=== PATIENT | female | born 1995 | race Two or more races ===

== ENCOUNTER 2023-03-03 16:09 | Outpatient (CLI) | payer OTHER | END 2023-03-03 16:10 | disposition home or self-care (01) | LOC: PRENATAL 16:09 | PROVIDERS: ATTEND Obstetrics & Gynecology Maternal & Fetal Medicine | DX: O26.849 Uterine size-date discrepancy, unspecified trimester (principal); O34.219 Maternal care for unspecified type scar from previous cesarean delivery; Z3A.26 26 weeks gestation of pregnancy ==

== ENCOUNTER → 2023-03-25 16:16 | Outpatient (CLI) | payer OTHER | END | disposition home or self-care (01) | LOC: PRENATAL 16:16 | PROVIDERS: ATTEND Obstetrics & Gynecology Maternal & Fetal Medicine | DX: O26.849 Uterine size-date discrepancy, unspecified trimester (principal); O34.219 Maternal care for unspecified type scar from previous cesarean delivery; O36.5990 Maternal care for other known or suspected poor fetal growth, unspecified trimester, not applicable or unspecified; Z3A.29 29 weeks gestation of pregnancy ==

== ENCOUNTER 2023-05-08 01:13 | Outpatient (CLI) | payer OTHER ==
[2023-05-08] MEDS ORDERED: TERBUTALINE SULFATE 1 MG/ML AMPUL SUBCUTANEO SCH (01:30)
[2023-05-08] MEDS ORDERED: RINGERS SOLUTION,LACTATED 1,000 ML IV SCH (01:30)
[2023-05-08 02:47] LABS: PH,URINE 6.5 (5.0-8.0); URINE APPEARANCE Cloudy; URINE BILIRRUBIN Negative (NEGATIVE); URINE BLOOD Negative; URINE COLOR Yellow; URINE GLUCOSE Negative (NEGATIVE); URINE LEUKOCYTE Moderate; URINE NITRATE Negative; URINE PROTEIN 30 (NEGATIVE)
[2023-05-08 02:51] LABS: URINE BACTERIA 6526.6 uL (0.0-1933); URINE EPITHELIAL CELLS 136.6 uL (0.0-38.8)
[2023-05-08 02:52] LABS: HEMATOCRIT 28.5 % (36.0-45.00); HEMOGLOBIN 9.5 g/dL (12.0-15.00); MEAN CELL VOLUME 88.6 fL (80.00-100.00); MEAN CORPUSCULAR HEMOGLOBIN 29.6 pg (27.00-32.0); MEAN CORPUSCULAR HGB CONC 33.4 g/dl (32.0-36.0); PLATELET COUNT 280 K/uL (150-450); RED BLOOD COUNT 3.22 M/uL (4.00-6.00); RED CELL DISTRIBUTION WIDTH 14.6 % (11.5-14.5)
[2023-05-08 03:09] LABS: URINE RBC 0.8 uL (0.0-20.8)
[2023-05-08 03:10] LABS: URINE CRYSTALS FEW /HPF
== END 2023-05-08 14:51 | disposition home or self-care (01) ==
LOC: OBS/DEL 01:13
PROVIDERS: Obstetrics & Gynecology; ATTEND Obstetrics & Gynecology
DX: O26.893 Other specified pregnancy related conditions, third trimester (principal); O26.849 Uterine size-date discrepancy, unspecified trimester; O36.8199 Decreased fetal movements, unspecified trimester, other fetus; O34.219 Maternal care for unspecified type scar from previous cesarean delivery; O36.5990 Maternal care for other known or suspected poor fetal growth, unspecified trimester, not applicable or unspecified; O60.00 Preterm labor without delivery, unspecified trimester; Z3A.32 32 weeks gestation of pregnancy

== ENCOUNTER 2023-05-26 20:19 | Inpatient (IN) | payer OTHER ==
[~2023-05-26] VITALS: Ht 149.9 cm; Wt 68.0 kg
[2023-05-26] MEDS ORDERED: PRENATAL TABLE1 EAC5 PO (21:02)
[2023-05-26] MEDS ORDERED: FOLIC ACID20 MG PO (21:03)
[2023-05-26 21:44] LABS: URINE APPEARANCE Cloudy; URINE BILIRRUBIN Negative (NEGATIVE); URINE BLOOD Negative; URINE COLOR Yellow; URINE GLUCOSE Negative (NEGATIVE); URINE LEUKOCYTE Small; URINE NITRATE Negative; URINE PROTEIN Trace (NEGATIVE)
[2023-05-26 21:45] LABS: HEMATOCRIT 34.8 % (36.0-45.00); HEMOGLOBIN 11.5 g/dL (12.0-15.00); MEAN CELL VOLUME 87.8 fL (80.00-100.00); MEAN CORPUSCULAR HEMOGLOBIN 29.1 pg (27.00-32.0); MEAN CORPUSCULAR HGB CONC 33.1 g/dl (32.0-36.0); PLATELET COUNT 296 K/uL (150-450); RED BLOOD COUNT 3.96 M/uL (4.00-6.00); RED CELL DISTRIBUTION WIDTH 15.6 % (11.5-14.5)
[2023-05-26] MEDS ORDERED: OXYTOCIN 10 UNITS/ML VIAL ONE (22:04)
[2023-05-26] MEDS ORDERED: ERYTHROMYCIN BASE 3.5 GM OINT...G. OP ONE (22:04)
[2023-05-26 22:05] LABS: INR < 0.93; PARTIAL THROMBOPLASTIN TIME 25.9 SECONDS (22.0-34.0); PROTHROMBIN TIME 9.6 SECONDS (9.0-11.5)
[2023-05-26] MEDS ORDERED: CEFAZOLIN SODIUM 1,000 MG VIAL ONE (22:05)
[2023-05-26 22:24] LABS: URINE BACTERIA 3294.7 uL (0.0-1933); URINE EPITHELIAL CELLS 76.9 uL (0.0-38.8); URINE RBC 3.3 uL (0.0-20.8); URINE WBC 109.6 uL (0.0-23.2)
[2023-05-26] MEDS ORDERED: CEFOXITIN SODIUM 2,000 MG VIAL IV ONE (22:30)
[2023-05-26] MEDS ORDERED: RINGERS SOLUTION,LACTATED 1,000 ML IV SCH (23:45)
[2023-05-26] MEDS ORDERED: MEPERIDINE HCL/PF 50 MG/ML VIAL IM PRN (23:45)
[2023-05-26] MEDS ORDERED: PROMETHAZINE HCL 25 MG/ML AMPUL IM PRN (23:45)
[2023-05-26] MEDS ORDERED: OXYTOCIN 1,000 ML IV SCH (23:45)
[2023-05-27 01:48] LABS: ABG PH 7.311 (7.35-7.45); ABG PO2 42.3 mmHg (80-100); ABG pCO2 44.5 mmHg (35-45); SaO2 71.8 %
[2023-05-27 01:49] LABS: BASE EXCESS -4.3 mmol/l; Tco2 23.3 mmol/l; o2 21 %
[2023-05-27] MEDS ORDERED: OXYTOCIN 10 UNITS/ML VIAL ONE (05:11)
[2023-05-27 08:07] LABS: HEMATOCRIT 28.6 % (36.0-45.00); MEAN CORPUSCULAR HEMOGLOBIN 28.6 pg (27.00-32.0); MEAN CORPUSCULAR HGB CONC 33.3 g/dl (32.0-36.0); PLATELET COUNT 242 K/uL (150-450); RED BLOOD COUNT 3.32 M/uL (4.00-6.00); RED CELL DISTRIBUTION WIDTH 15.5 % (11.5-14.5)
[2023-05-27 08:09] LABS: HEMOGLOBIN 9.5 g/dL (12.0-15.00)
[2023-05-27] MEDS ORDERED: OxyCODONE HCL/APAP UD (PERCOCET) PO PRN (09:00)
== END 2023-05-29 16:07 | disposition home or self-care (01) | DRG 788 ==
LOC: OB/GYN 20:19 → LDR 20:19 → O/R 22:45 → OB/GYN 23:50
PROVIDERS: ADMIT Obstetrics & Gynecology; ATTEND Obstetrics & Gynecology
PROC: 4A1HXCZ Monitoring of Products of Conception, Cardiac Rate, External Approach (ICD-10-PCS; 2023-05-26)
PROC: 10D00Z1 Extraction of Products of Conception, Low, Open Approach (ICD-10-PCS; principal; 2023-05-26 22:30)
DX: O36.5930 Maternal care for other known or suspected poor fetal growth, third trimester, not applicable or unspecified (principal); O34.211 Maternal care for low transverse scar from previous cesarean delivery; Z3A.38 38 weeks gestation of pregnancy; Z37.0 Single live birth; Z20.822 Contact with and (suspected) exposure to COVID-19